=== PATIENT | female | born 1950 | race Caucasian/White ===

== ENCOUNTER 2018-08-05 14:12 | Outpatient (CLI) | payer OTHER ==
--- NOTE | 2018-08-05 22:20 | Ultrasound Report ---
Reason: RECURRING PAIN IN LOWER LEFT QUADRANT Procedure Date: 08/05/2018 Accession Number: [id number] / [id number] Procedure: US - Pelvic w/Transvaginal CPT Code: FULL RESULT: EXAM: PELVIC ULTRASOUND EXAM DATE: 08/05/2018 04:31 PM. CLINICAL HISTORY: Recurring pain in lower left quadrant. COMPARISON: None. TECHNIQUE: Realtime transabdominal pelvic scan performed to identify the uterus and adnexa and as an overview of other pelvic structures, followed by transvaginal scan to provide greater detail of the uterus and adnexa, with static image documentation. FINDINGS: Uterus: 8.4 x 3.5 x 6.6 cm, volume 101 cc. Anteverted position. Heterogeneous endometrium. Masses: 2.8 x 2.7 x 2.8 cm left fundal intramural fibroid. Endometrium: 2.7 mm. No endometrial mass or polyp.Mildly heterogeneous echotexture. Cervix: Unremarkable. Right Ovary: 1.5 x 1.2 x 1.3 cm, volume 1.2 cc. Normal echotexture and blood flow. Left Ovary: 2.0 x 1.4 x 1.6 cm, volume 2.3 cc. Normal echotexture and blood flow. Free Fluid: None. Other: Study limited by body habitus. IMPRESSION: 1. Study limited by body habitus. 2. No ovarian mass or adnexal lesion. Ovaries are atrophic as expected for a postmenopausal female. 3. 2.8 cm fundal intramural fibroid. Heterogeneous myometrium. 4. Normal endometrium. No mass or polyp. RADIA
== END 2018-08-05 14:13 | disposition home or self-care (01) ==
LOC: DI 14:12
PROVIDERS: ATTEND Nurse Practitioner Family
DX: R10.32 Left lower quadrant pain (principal); D25.1 Intramural leiomyoma of uterus
CPT/HCPCS: 76830; 76856

== ENCOUNTER 2018-08-10 16:19 | Outpatient (CLI) | payer OTHER ==
--- NOTE | 2018-08-15 13:52 | Mammography Report ---
Reason: SCREENING MAMMO Procedure Date: 08/10/2018 Accession Number: [id number] / [id number] Procedure: MGN - Screening Mammo Dig Bilat CPT Code: FULL RESULT: EXAM: Screening Mammo Dig Bilat DATE: 08/10/2018 4:36 PM CLINICAL HISTORY: 67-year-old female presents for screening mammogram. TECHNIQUE: Bilateral CC, right laterally exaggerated CC, bilateral MLO views were obtained. COMPARISON: 05/21/2010. FINDINGS: The breasts demonstrate heterogeneously dense fibroglandular parenchyma bilaterally. Typically benign vascular calcifications are identified bilaterally. No suspicious masses, clustered microcalcifications, or regions of architectural distortion are identified. IMPRESSION: Benign findings RECOMMENDATION: Routine annual screening unless otherwise clinically indicated. BIRADS CATEGORY 2: Benign findings STANDARD QUALIFYING STATEMENTS: 1. This examination was not reviewed with the aid of Computer-Aided Detection (CAD). 2. A negative or benign imaging report should not delay biopsy if clinically suspicious findings are present. Consider surgical consultation if warrented. More than 5% of cancers are not identified by imaging. 3. Dense breasts may obscure an underlying neoplasm. 4. This examination was reviewed without the aid of 3D breast imaging (tomosynthesis).
== END 2018-08-10 16:20 | disposition home or self-care (01) ==
LOC: DI.N 16:19
PROVIDERS: ATTEND Nurse Practitioner Family
DX: Z12.31 Encounter for screening mammogram for malignant neoplasm of breast (principal)
CPT/HCPCS: 77067

== ENCOUNTER 2023-09-20 14:59 | Outpatient (CLI) | payer OTHER, MEDICARE ==
--- NOTE | 2023-09-20 16:22 | XRAY Report ---
PROCEDURE: Cervical Spine 2 View INDICATIONS: SHOULDER PAIN, NECK PAIN TECHNIQUE: 3 view(s) of the cervical spine were acquired. COMPARISON: None. FINDINGS: Bones: No fractures or dislocations to the C7 level. The lateral masses of C1 appear intact on the odontoid view. No suspicious bony lesions. Moderate disc height loss at C6-7. Mild disc height loss at remaining levels. Diffuse facet arthrosis, most prominent at C3-C5. Soft tissues: No prevertebral soft tissue swelling. IMPRESSION: Mild to moderate, multilevel degenerative disc disease and facet arthrosis. Reviewed by: Oswald Barroso on 09/20/2023 4:21 PM [facility] Approved by: Oswald Barroso on 09/20/2023 4:21 PM [facility] Station ID: [id number]
--- NOTE | 2023-09-20 16:28 | XRAY Report ---
PROCEDURE: Shoulder 3 View LT INDICATIONS: SHOULDER PAIN, NECK PAIN TECHNIQUE: 3 views of the shoulder were acquired. COMPARISON: None. FINDINGS: Bones: No fractures or dislocations. No suspicious bony lesions. Visualized ribs appear intact. Glenohumeral and acromioclavicular joint space narrowing with associated osteophytosis. Soft tissues: No suspicious soft tissue calcifications. The visualized lungs are within normal limi ts. 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 Reviewed by: Oswald Barroso on 09/20/2023 4:26 PM [facility] Approved by: Oswald Barroso on 09/20/2023 4:26 PM [facility] Station ID: [id number]
== END 2023-09-20 15:00 | disposition home or self-care (01) ==
LOC: DI 14:59
PROVIDERS: ATTEND Internal Medicine
DX: M47.812 Spondylosis without myelopathy or radiculopathy, cervical region (principal); M50.30 Other cervical disc degeneration, unspecified cervical region